=== PATIENT | female | born 1965 | race Caucasian/White ===

== ENCOUNTER 2020-09-06 10:31 | Outpatient (REF) | payer OTHER, SELFPAY | END 2020-09-06 10:32 | disposition home or self-care (01) | LOC: HO.LAB 10:31 | PROVIDERS: Visit Provider Internal Medicine | DX: Z20.822 Contact with and (suspected) exposure to COVID-19 (principal) | CPT/HCPCS: 36415; C9803; U0003 ==

== ENCOUNTER 2025-07-09 07:26 | Outpatient (AMB) | payer BC, SELFPAY ==
--- OUTSIDE RECORDS SUMMARY | 2025-07-09 07:28 | XMS_ITS | Clinical Summary ---
Author Organization [facility] Address [address] [place] [address] Care Team Providers Care Oracle Manager Name Role Phone Unavailable Primary Care Provider Unavailabl e Source Comments PLEASE NOTE, if this patient is a minor, it may be UNLAWFUL to discuss sensitive information that is contained in these records (such as FAMILY PLANNING, MENTAL HEALTH or SUBSTANCE ABUSE) with the minor patient's parent or other person without the patient's specific authorization.[facility] Immunizations Immunization Administration Dates Next Due Moderna COVID-19 Vaccine, re d cap blue label, 12+ Primary Series 01/24/2021,12/27/2020 Social History Tobacco Use Types Packs/Day Years Used Date Smoking Tobacco: Never Assessed Social Connections Answer Date Recorded Connectedness 0 05/15/2024 Financial Resource Strain Answer Date R ecorded Financial Resource Strain 0 2023 Stress Answer Date Recorded Stress 0 02/01/2024 Physical Activity Answer Date Recorded Physical Activity 0 02/01/2024 Food Insecurity Answer Date Recorded Food 0 05/29/2024 Transportation Needs Answer Date Record ed Transportation 0 02/01/2024 Housing Stability Answer Date Recorded Housing 0 02/01/2024 Safety and Environment Answer Date Eugene rded Safety 0 02/01/2024 Utilities Answer Date Recorded Utilities 0 02/01/2024 Employment Answer Date Recorded Stress 0 05/15/2024 Comments Unknown Sex and Gender Information Value Date Recorded Sex Assigned at Not on file Legal Sex Female 7:01 AM PDT Gender Identity Not on file Sexual Orientation Not on file Plan of Treatment Health Maintenance Due Date Last Done Comments Anxiety Screening 1965 Diabetes Screening 1965 HPV Screening (self-collect) 1965 HPV Screening 1965 Hepatitis C Screening 1965 Lipid Screening 1965 Pap + HPV 1965 Tobacco Screening 1965 HIV Screening 1980 Hypertension Screening (#1) 12/25/1983 Imm-DTaP/Tdap/Td (1 - Tdap) 1984 Imm-Hepatitis B (1 of 3 - 19 + 3-dose series) 1984 Cervical Cancer Screening 1986 Pap Smear 1986 Breast Cancer Screening (Mammogram) 2005 CT Colonography 2010 Colonoscopy 2010 Colorectal Cancer Screening 2010 FIT/gFOBT 2010 Fecal DNA 2010 Flexible Sigmoidoscopy 2010 Imm-Pneumococcal 50+ (1 of 1 - PCV) 12/25/2015 Imm-Zoster, Recombinant (1 of 2) 12/25/2015 Alcohol and Drug Screen 09/03/2024 Depression Annual Screen 09/03/2024 [id number] (3 - 2024- season) 2025 021, 12/27/2020 Imm-Influenza (#1) 2025 Cervical Ablation/Cold-Knife Conization Discontinued Cervical Cryotherapy Discontinued Colposcopy Discontinued Excision/Leep Discontinued HPV Genotyping Discontinued Vaginal Pap Discontinued Vulvoscopy Discontinued Insurance [facility] Member Subscriber Plan / Payer (Ef fective 2019-Present) Name:So Levy Relation to Subscriber:Self Name:So Levy Payer ID:[id number] Type:Indemnity Address: [address] [place] [address]
--- NOTE | 2025-07-09 07:34 | AM.OFFWIN_ITS ---
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 - The patient was exposed to a person wi th pneumonia 3 weeks ago and suspects it might be walking pneumonia due to the nature of the exposure and symptoms. - The patient experienced severe nasal c ongestion initially, which was unrelieved by nasal sprays, leading to a suspicion of sinusitis. - Is unable to sleep due to cough. - The patient has been on prednisone twi ce and Augmentin, but these did not alleviate the symptoms significantly. - The patient has not experienced fever but reports significant mucus production and persistent cough. Denies sinus pain or ear pain, shortness of breath but feels she is shallow breathing. - Has used albuterol nebulizer with some relief, denies history of asthma or COPD, is not a smoker and does not vape. Review of Systems - Respiratory: Reports persistent cough and shallow breathing. Denies dyspnea. - General: Denies fever. - ENT: Reports nasal congestion initiall y, now resolved. All systems reviewed and are unremarkable except as noted in HPI Physical Exam General: Cooperative, healthy appearing, comfortable and no acute distress Orientation/consciousness: Patient oriented x3 Limitations: No limitations Head: Normal to inspection Ears: Hearing grossly normal bilaterally, external ears normal, EAC's normal bilaterally and TM's normal bilaterally Nose: Normal external nose present, Normal nares present and No nasal discharge present Face and sinus: Normal facial exam and sinuses nontender Mouth: Normal oral and palatal mucosa present and moist mucous membranes Throat: Tonsils normal, no exudates, uvula midline, posterior oropharynx erythema Eyes: Appearance normal, both eyes and all related structures Neck: Normal visual inspection, full ROM Respiratory: rhonchi in bilateral lower lobes. Normal respiratory effort, able to speak in complete sentences, actively coughing, no respiratory distress, not tachypneic, no tripod positioning and no use of accessory muscles Cardiovascular: Regular rate and rhythm. Normal S1 and S2 Skin: No rashes or lesions noted Neuro: Patient oriented x3 Extremities: Normal to inspection and Yes no clubbing, cyanosis or edema Physical Exam Vital Signs: Last Vital Signs Temp 98.4 F 07/09/25 07:36 Pulse 65 07/09/25 07:36 Resp 16 07/09/25 07:36 BP 110/62 07/09/25 07:36 Pulse Ox 96 07/09/25 07:36 Oxygen Delivery Method Room Air 07/09/25 07:36 BMI result Body Mass Index 29.2 Assessment & Plan Assessment & Plan (1) Lower respiratory infection (e.g., bronchitis, pneumonia, pneumonitis, pulmonitis): Code(s): J22 - Unspecified acute lower respiratory infection Plan: Plan Patient was informed and verbally consented to the use of an ambient scribe for clinic note documentation during this visit. - VSS, pt well appearing and PE remarkable for rhonchi in bilateral lower lobes - Plan to initiate treatment with azithromycin (Z-José Luis) as discussed, which is effective for walking pneumonia and pertussis, suscpicious for both as exposed to walking pneumonia and 3 weeks of a cough lends itself to pertussis. - Will get chest x-ray to confirm diagnosis and assess for PNA. - Codeine cough syrup for bedtime to control cough. - Flu, Covid and RSV testing sent. Orders: Orders XR chest 2V Today R05.9 - Cough, unspecified Medications: New azithromycin For 250 mg dose pack: take 500 mg today (day 1), then 250 mg for 4 days (days 2-5) PO 6 tabs 0RF codeine-guaifenesin 10-100 mg/5 mL 10 mL PO Q4-6H PRN 120 mL 0RF cold symptoms benzonatate 200 mg PO BEDTIME PRN 10 caps 0RF cough Coding Level of Care Code New Pt Level 3 (00912) Diagnoses Lower respiratory infection (e.g., bronchitis, pneumonia, pneumonitis, pulmonitis) J22
[2025-07-09 07:36] VITALS: BP 110/62; PULSE 65; RESP 16; TEMP 36.9; O2SAT 96; BMI 29.2
== END 2025-07-09 08:34 | disposition home or self-care (01) ==
PROVIDERS: PCP Internal Medicine; Visit Provider Physician Assistant
DX: J22 Unspecified acute lower respiratory infection (principal)

== ENCOUNTER 2025-07-09 07:26 | Outpatient (REF) | payer BC, SELFPAY ==
--- NOTE | ~2025-07-09 | XR_ITS ---
EXAMINATION: XR CHEST CLINICAL INFORMATION: R05.9 - Cough, unspecified COMPARISON: None available. TECHNIQUE: PA and lateral views. FINDINGS: Linear patchy opacities in the lung bases. No hyperinflation. No gross consolidation, pleural effusion or pneumothorax. Cardiomediastinal silhouette size is normal. Multilevel thoracolumbar spondylosis, mild to moderate. Focal 3 mm calcification soft tissues of the right shoulder. . XR/XR chest 2V IMPRESSION: Atelectasis versus less likely airspace disease, lung bases. Calcific tendinosis/tendinopathy, right supraspinatus. Electronically signed by: Mushtaq Potrer MD 07/09/2025 08:55 AM EST
== END 2025-07-09 07:27 | disposition home or self-care (01) ==
LOC: HO.HMGCX 07:26
PROVIDERS: PCP Nurse Practitioner Family; Visit Provider Physician Assistant
DX: J22 Unspecified acute lower respiratory infection (principal); R05.9 Cough, unspecified
CPT/HCPCS: 71046

== ENCOUNTER → 2025-07-09 08:36 | Outpatient (BNV) | payer BC, SELFPAY | PROVIDERS: PCP Nurse Practitioner Family; Visit Provider Radiology Diagnostic Radiology | DX: R05.9 Cough, unspecified (principal) | CPT/HCPCS: 71046 ==

== ENCOUNTER 2025-07-09 11:55 | Outpatient (REF) | payer BC, SELFPAY ==
[2025-07-09 12:55] LABS: Resp Syncy Virus RNA Qual PCR NEGATIVE (Negative); SARS COV2 PCR INHOUSE NEGATIVE (Negative)
== END 2025-07-09 11:56 | disposition home or self-care (01) ==
LOC: HO.LAB 11:55
PROVIDERS: Visit Provider Physician Assistant
DX: Z03.818 Encounter for observation for suspected exposure to other biological agents ruled out (principal)
CPT/HCPCS: 87637